=== PATIENT | male | born 1995 | race Caucasian/White ===

== ENCOUNTER 2017-03-09 15:15 | Inpatient (IN) | payer OTHER ==
--- NOTE | 2017-03-09 15:35 | EDPHY ---
H & P Smoking Status: Never smoked Time Seen by Provider: 03/09/17 15:21 HPI/ROS: CHIEF COMPLAINT: Worsening depression suicidal ideation HISTORY OF PRESENT ILLNESS: Patient is been on Effexor for the last 3 years. Suicidal ideation today. Worsening depression for the last 6 months. He 2 days spoke with his mother who requested that he bring himself to the emergency department for evaluation. His therapist saw him urgently today and brought into the emergency department for evaluation. Depression severe includes thoughts of self-harm including hanging himself or cutting his wrists. Worsening over the last 6 months but much worse over the last couple of days. REVIEW OF SYSTEMS: Eye: no change in vision ENT: no sore throat Cardiac: no chest pain or syncope Pulmonary: no cough or SOB Abdomen: no vomiting, diarrhea, abdominal pain Musculoskeletal: no back pain Skin: no rash Neuro: no headache Constitutional: no fever : no urinary symptoms A comprehensive 10 point review of systems is otherwise negative aside from elements mentioned in the history of present illness. PAST MEDICAL HISTORY: Depression Social history: Marijuana but no other drugs and no alcohol General Appearance: Alert and conversant, cooperative. Eyes: No scleral icterus. ENT, Mouth: Normal mucous membranes. Respiratory: Normal respiratory effort, breath sounds equal, lungs are clear to auscultation. Cardiovascular: Regular rate and rhythm. Gastrointestinal: Abdomen is soft and non tender. Neurological: Alert and oriented x3. Normally conversant. Face symmetric, normal movement and sensation in all extremities. Skin: No lacerations or injury. Musculoskeletal: No peripheral edema and no joint swelling. Psychiatric: Intermittently tearful, depressed affect, suicidal ideation as above. Not hallucinating. Emergency Department course/MDM: Patient is placed on a mental health hold by myself for suicidal ideation and severe depression. 1729: Labs and vital signs reviewed, the patient is medically cleared for psychiatric evaluation. 2042: Signed out to Cassidy at 2100 with psychiatric evaluation pending. (Brennan Perez) Constitutional: Initial Vital Signs Temperature (C) 36.8 C 03/09/17 15:19 Heart Rate 60 03/09/17 15:19 Respiratory Rate 16 03/09/17 15:19 Blood Pressure 126/87 H 03/09/17 15:19 O2 Sat (%) 97 03/09/17 15:19 O2 Delivery Mode Room Air Allergies/Adverse Reactions: No Known Allergies Allergy (Unverified 03/09/17 15:19) Home Medications: Medication Instructions Recorded VENLAFAXINE HCL 03/09/17 Medical Decision Making ED Course/Re-evaluation: 7am-assumed care of this patient at shift change. On an M1 hold for suicidal ideation, looking for inpatient disposition. 8:30 a.m.-this patient has been accepted to [address] [place] [address] Multani. EMTALA form completed. (Sherry Wiley) Differential Diagnosis: Differential diagnosis considered for depression including functional and major depression, situational depression, medication side effect, drugs and alcohol abuse. (Brennan Perez) - Data Points Laboratory Results: Laboratory Results 03/09/17 16:06 03/09/17 16:06 Departure - Departure Disposition: [facility] IP Clinical Impression: Severe major depression, Suicidal ideation Condition: Fair Referrals: SEEMA BERKOWITZ [Other] - As per Instructions
[2017-03-09 16:16] LABS: % IMMATURE GRANULYOCYTES 0.3 % (0.0-1.1); ABSOLUTE IMMATURE GRANULOCYTES 0.03 10^3/uL (0.00-0.10); ADD DIFF? NO; ADD MORPH? NO; ADD SCAN? NO; ATYPICAL LYMPHOCYTE FLAG 10 (0-99); FRAGMENT RBC FLAG 0 (0-99); HEMATOCRIT 49.7 % (40.0-51.0); HEMOGLOBIN 17.9 g/dL (13.7-17.5); LEFT SHIFT FLG 0 (0-99); LIPEMIA HEMOLYSIS FLAG 90 (0-99); MEAN CELL HEMOGLOBIN 31.7 pg (27.9-34.1); MEAN CELL VOLUME 88.1 fL (81.5-99.8); MEAN PLATELET VOLUME 9.5 fL (8.7-11.7); PLATELET CLUMPS FLAG 0 (0-99); PLATELET COUNT 345 10^3/uL (150-400); RED BLOOD CELL COUNT 5.64 10^6/uL (4.40-6.38); RED CELL DISTRIBUTION WIDTH 12.4 % (11.5-15.2)
[2017-03-09 16:30] LABS: ANION GAP 15 mEq/L (8-16); CALCIUM 10.2 mg/dL (8.5-10.4); CARBON DIOXIDE 22 mEq/l (22-31); CHLORIDE 103 mEq/L (97-110); CREATININE 0.8 mg/dL (0.7-1.3); ETHANOL SERUM < 10 mg/dL (0-10); GLOMERULAR FILTRATION RATE > 60; GLUCOSE 88 mg/dL (70-100); POTASSIUM 3.9 mEq/L (3.5-5.2); SALICYLATE < 1.0 mg/dL (2.0-20.0); SODIUM 140 mEq/L (134-144)
[2017-03-10 10:49] VITALS: RESP 14
[2017-03-10] MEDS ORDERED: LORazepam 0.5 MG TAB PO PRN (12:14)
[2017-03-10] MEDS ORDERED: MAG HYDROX/AL HYDROX/SIMETH 30 ML UDCUP PO PRN (12:14)
[2017-03-10] MEDS ORDERED: ACETAMINOPHEN 325 MG TAB PO PRN (12:14)
[2017-03-10] MEDS ORDERED: MAGNESIUM HYDROXIDE 30 ML UDCUP PO PRN (12:14)
[2017-03-10] MEDS ORDERED: FLU VACC QS 2017-18 (3YR+)/PF 0.5 ML SYR (FLUARIX QUAD) IM ONE (13:36)
[2017-03-10] MEDS: VENLAFAXINE XR 150 MG CAP PO SCH (13:51)
--- NOTE | 2017-03-10 14:34 | BCON ---
[f rep st] BEHAVIORAL HEALTH CONSULTATION INTERNAL MEDICINE CONSULTATION DATE OF CONSULTATION: 03/10/2017 REFERRING PHYSICIAN: Asiya Multani MD REASON FOR REFERRAL: Medical clearance for inpatient behavioral health stay. HISTORY OF PRESENT ILLNESS: This patient came to the [facility] yesterday with increasing suicidal ideation and worsening depression. He was evaluated by the mental health team and admitted for further psychiatric care. Currently, he is without any acute medical complaints. PAST MEDICAL HISTORY: Depression. PAST SURGICAL HISTORY: He denies any history of surgeries. MEDICATIONS: He was taking venlafaxine. ALLERGIES: There are no known drug allergies. SOCIAL HISTORY: He lives with several roommates. 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 He is a nonsmoker. He uses occasional marijuana. FAMILY HISTORY: Noncontributory. REVIEW OF SYSTEMS: A 10-point review of systems was conducted and was negative. PHYSICAL EXAM: VITAL SIGNS: Blood pressure is 122/71. Heart rate is 68. Respiratory rate is 14. Oxygen saturation is 96% on room air. Temperature is 36.6 degrees centigrade. His weight is 70.3 kg for a body mass index of 21.6. GENERAL: This is a well-nourished, well-developed, somewhat thin man, appears his chronologic age, cooperative and in no acute distress. HEENT: Extraocular movements are intact. Pupils are equal, round, and reactive to light. Mucous membranes are moist. Dentition is in good condition. He has an uncrowded airway, Mallampati class 1. NECK: Supple. HEART: There is a regular rate and rhythm, with no murmurs, rubs, or gallops. LUNGS: Clear to auscultation bilaterally. ABDOMEN: Soft, nontender, nondistended, with normoactive bowel sounds. EXTREMITIES: There is no cyanosis, clubbing, or edema. NEUROLOGIC: He is alert and oriented x3. Cranial nerves 2-12 are grossly intact. There is no focal weakness, and sensation is intact to light touch. LABORATORY DATA: Laboratory studies drawn in the emergency department: CBC showed a slightly elevated white blood cell count at 9.6. He had a slightly elevated hemoglobin at 17.9. Otherwise, CBC was completely within normal limits. Serum chemistry revealed normal renal function and electrolytes. Toxicology screen in the serum was negative for salicylates, acetaminophen, or ethyl alcohol, and the urine was non-negative for marijuana, but otherwise negative for substances of abuse. ASSESSMENT/RECOMMENDATIONS: 1. Mental health issues, pending further evaluation and management per Psychiatry and the mental health team. 2. Normal exam, with no medical concerns. I see no medical contraindications to this patient's continued stay in the inpatient behavioral health unit or to any psychiatric medications or procedures. Thank you very much for including me in the care of this patient, and please do not hesitate to contact me or the hospitalist service should there be a need for further medical evaluation. /[id number]/MODL MTDD
--- NOTE | 2017-03-10 16:10 | BAPA ---
[f rep st] ADMISSION PSYCHIATRIC ASSESSMENT DATE OF SERVICE: 03/10/2017 CHIEF COMPLAINT: "I'm just not doing well." HISTORY OF PRESENT ILLNESS: Patient is a 21-year-old male with a history of major depressi on and remote attention deficit disorder. He [facility] due to worsening depression and an expression of suicidal ideation. He reports having a rather marginal mood for more than a year, but 2-3 weeks of significant worsening. He states that rupert herron had called his mother yesterday and told her that he was "feeling very exhausted." He states that he has "been sleeping a lot and waking up tired." He states that he has been feeling more depressed, has been very unmotivated and has been neglecting his personal care as well as his school work. 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 He states that his mood has been increasingly depressed over the past several weeks and he has been h aving "disturbing thoughts and images of me slitting my wrists or hanging myself or of me being . " He states that he has been mainly staying in his home sleeping, though feeling very tired. He is not eating and will go more than 24 hours without a meal. He states that his appetite is poor and that he is not motivated to eat and that he feels like it is a burden to shop for food or prepare food. Rupert herron describes likewise poor motivation to begin his schoolwork or complete tasks that are necessary for his ADLs. Attempts at trying to do his school work have proved futile as he is not able to attend t o these tasks. Complicating this in his opinion is the fact that he is smoking marijuana up to a gra m a day every day and this has escalated recently. He has also been drinking on a near daily basis " just to zone out." He states that when he smokes marijuana and drinks he "feels disconnected though I am not focused on my responsibilities or priorities." He states that the alcohol and marijuana use has escalated since the late summer and he has felt out of control of this. He reports having gone to [place] to visit family in late January and drink ex cessively on a daily basis while there. He states that his father actually talked with him about thi s and asked him to stop but that he was unable to, causing a conflict. When he returned home, he beg an using marijuana more heavily, but continued to drink at some level on a daily basis. He reports t he thoughts and fantasies of suicide, and dying have increased over the last 2-3 weeks, but it began while he was in [place]. He states that his girlfriend mentioned that she was having thoughts of suicide about 2 weeks ago and this increased the intensity of the experiences for him. He states that he is not properly attendin g to that relationship and this is causing him guilt and shame as well. He feels helpless and hopele ss and feels overwhelmed by the prospect of his academic work. He describes increasing problems ashok ging his time and spends his days playing video games, watching TV, drinking, smoking pot and "just z oning out." PAST PSYCHIATRIC HISTORY: Significant for taking Lexapro from age [age]. He states that this initia lly helped with his mood and anxiety but that it "wore off." He states that he never took more than 10 mg. He also took Abilify in combination with his current Effexor, but this was discontinued due t o weight gain. He denies any previous psychiatric hospitalizations or suicide attempts. He does hav e a history of self harming in the form of cutting, occurring from the age of approximately 16 until about 8 months ago, though has not done any since that time. He sees Lissett Bower for medication management for the past year. He also sees a therapist, Abdulaziz Omer, weekly which he states is h elpful. It was to his therapist that he disclosed the suicidal thoughts yesterday and was brought to the hospital. ALLERGIES: No known medical allergies. CURRENT MEDICATIONS: Effexor XR 225 mg daily. PAST MEDICAL HISTORY: Noncontributory. No history of central nervous system disease. SOCIAL HISTORY: Patient was born and raised in [place]. His mother, father, younger sister and o lder brother continue to live there. He states a good relationship with his siblings and a supportiv e though at times conflictual relationship with parents, mostly because "I put them through a lot." The patient apparently was sent to [facility] [place] and then to [facility] after high sc hool here in [place]. He was in [facility] from May of 2015 to October of 2015 at which time he went to live in the community. He states he completed the program and began working at a [employer]. He reports having conflicts with other staff due to some generalized anxiety that he has where he fe els that he is being excessively monitored and he quit this job and then began taking a few classes i n the fall [employer] in psychology. He began taking full-time classes in the spring and states this went reasonably well. He beg an working also at a [employer]. He worked full-time at the [employer] over the summer and states th at he maintained a marginal but adequate mood through this time. He returned home to [place] to [facility] in late summer and states this is when his mood began to decline, his substance abuse increased and his thoughts of suicide became more prominent. The patient currently lives in a house with 4 safia mmates and he states that this is a reasonable environment though they all use marijuana and drink in the common spaces. He describes them as "friendly and respectful" but states that it is not a sober living environment. He has a girlfriend named Daphne whom he has dated for the past 6 months who is also a student at [employer]. He states that she is in an ongoing difficult relationship with her ex- in sharing custod y of their 3-year-old son. He states that her ex-partner is "not a good char" and that there is ongoi ng conflict there. His current supports are his girlfriend, his therapist and a mentor named Ezekiel talley om he continues to see from [facility]. He is working part-time at this time at the [employer]. He is fu ll time at [employer] studying psychology. The patient's parents live in [place]. His mot her is a homemaker and his father works in insurance in [facility]. SUBSTANCE ABUSE HISTORY: Patient uses marijuana on a daily basis. His 1st use was age 16 and he cur rently uses on a daily basis, smoking a half to a gram. He denies any use of concentrated forms. Th e patient uses alcohol up to a daily basis. He states he typically drinks 4 drinks at a time but kathleen etimes more. He admits that he will feel out of control with this at times. He has not been in any form of active recovery and states this was not part of his discharge plan from [facility]. FAMILY HISTORY: The patient has 2 cousins with alcohol and drug problems. Maternal aunt with depres che and suicide attempts. Paternal grandmother with depression and he states his mother seems to sam ve ADD symptoms. ADMISSION LABORATORY: CBC shows a white count at 9.60. Serum chemistries are normal. Urine drug sc reen is positive for marijuana. MENTAL STATUS EXAMINATION: Reveals a thin though healthy-appearing male. He is pleasant, cooperative and displays good social skills and a calm and pleasant interpersonal demeanor. His affe ct is blunted, dysphoric, stable and appropriate. His mood is described as "depressed." His thought process is linear and goal directed. His thought content reveals no evidence of psychosis. He is a lert and oriented to person, place, time, and situation, and his sensorium is clear. His intellect a ppears to be average to above average as evidenced by his educational and occupational history, his f und of knowledge, and vocabulary. He continues to endorse thoughts of suicide with vivid visual repr esentations and fantasies of , dying and suicide. His insight and judgment appear to be fair to good. IMPRESSION: 1. Major depressive disorder, recurrent, severe, without psychosis. 2. Cannabis use disorder, severe. 3. Alcohol use disorder, moderate to severe. 4. Attention deficit hyperactivity disorder, inattentive type by history. 5. Academic stress. 6. Marginal interpersonal supports. 7. Relationship stress. 8. Family conflict. The patient is a 21-year-old male with a history of rather chronic major depression superim posed on substance use disorders. He presents at this time with increasing suicidality in the presen ce of persistent subtherapeutic response to adequate antidepressant therapy. He has only been treate d with 2 antidepressants with 1 brief augmentation with Abilify. He does have symptoms of poor atten tion and concentration, low motivation and procrastination which certainly could be ongoing inattenti on related to hypofrontality, though the origin of this would be difficult to say. It could be from his existing attention deficit disorder that is complicated by his depression and substance use or it could be his depression or substance use alone. I have reviewed with him some potential options for treatment including changing to an alternative antidepressant or further augmentation with either a different atypical lithium or an amphetamine. I have discussed in general the differences between hannah aiken to a different antidepressant monotherapy, combination therapy or augmentation therapy. I hav e indicated that I will discuss the case with his outpatient provider, Lissett Bower, prior to seema ng any definitive decision. PLAN: 1. We will admit to the [facility] inpatient unit on an M1 hold. 2. Continue Effexor XR at 150 mg for now in preparation for either crossover or augmentation. 3. Will review the case with Lissett Bower to determine the next step in regard to pharmacologic i nterventions. 4. We will engage in individual, group, and milieu psychotherapies, consulting the patient's outpati ent psychotherapist. 5. Will monitor for safety. 6. Estimated length of stay is 5-7 days. /[id number]/MODL
[2017-03-11] MEDS: VENLAFAXINE XR 150 MG CAP PO SCH (08:28)
[2017-03-11] MEDS ORDERED: VENLAFAXINE XR 150 MG CAP PO SCH (11:52)
[2017-03-11] MEDS: buPROPion XL 150 MG TAB PO SCH (14:51)
--- NOTE | 2017-03-11 17:27 | SOAPPROG ---
SOAP Progress Note Assessment/Plan: Assessment: Plan: 03/11/17 17:27 Improving. Will proceed as above. Subjective: Pt seen, discussed with staff. Reports feeling "a lot better." States he feels supported by the staff and group interactions on the unit. I reviewed the case with Lissett Bower and will proceed with crossover from Effexor to Wellbutrin. The risks, benefits and alternatives of this are reviewed with pt and he agrees to proceed. Objective: Vital Signs Temp Pulse Resp BP Pulse Ox 36.3 C 82 14 118/75 98 03/11/17 06:00 03/11/17 06:00 03/11/17 06:00 03/11/17 06:00 03/11/17 06:00 MSE: Calm, coop. Affect is brighter, stable, approp. Mood is "better." TP linear. TC reveals no psychosis. No current SI. - Time Spent With Patient Time Spent With Patient: 25" ICD10 Worksheet Patient Problems: Problems Problem Status Onset Severe major depression Acute Suicidal ideation Acute
[2017-03-12 06:47] VITALS: BP 113/56; PULSE 87; TEMP 97.6; O2SAT 99
[2017-03-12] MEDS: buPROPion XL 150 MG TAB PO SCH (08:35)
[2017-03-12] MEDS ORDERED: VENLAFAXINE XR 75 MG CAP PO SCH (09:00)
== END 2017-03-12 14:04 | disposition home or self-care (01) | DRG 885 ==
LOC: BBEH 03-10 09:43
PROVIDERS: ADMIT Psychiatry & Neurology Behavioral Neurology & Neuropsychiatry; ATTEND Psychiatry & Neurology Behavioral Neurology & Neuropsychiatry
DX: F33.2 Major depressive disorder, recurrent severe without psychotic features (principal); R45.851 Suicidal ideations; F12.20 Cannabis dependence, uncomplicated; F10.20 Alcohol dependence, uncomplicated; F90.0 Attention-deficit hyperactivity disorder, predominantly inattentive type
CPT/HCPCS: 80305; G0008; G0480